=== PATIENT | male | born 1965 | race Caucasian/White ===

== ENCOUNTER 2018-12-21 11:09 | Emergency (ER) | payer MEDICARE, OTHER ==
[~2018-12-21] VITALS: Ht 167.6 cm; Wt 68.0 kg
[~2018-12-21 11:09] MED LIST: AMITRIPTYLINE H50 MG PO; GABAPENTIN300 MG PO; RISPERDAL4 MG PO; ZANAFLEX4 MG PO; ZOLOFT100 MG PO
--- OUTSIDE RECORDS SUMMARY | 2018-12-21 11:12 | XMS ---
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 Care History Substance Use/Overdose 06/28/2016 [facility] THIS PATIENT IS BEING TREATED FOR CHRONIC PAIN BY DR CHAO OF [facility] IN [facility]. HE SEES DR CHAO AT THE [facility] OFFICE. PLEASE AVOID NARCOTIC TREATMENT WITHOUT SPEAKING WITH DR CHAO. CONTACT INFO IS PHONE [phone] AND FAX [phone]. Dav[facility] VISIT COUNT (12 MO.) 1 [facility] TOTAL 1 NOTE: Visits indicate total known visits. ED/UCC VISIT TRACKING (12 MO.) 12/21/2018 11:09 [facility] [place] TYPE: Emergency COMPLAINT: - ANKLE INJ, SWELLING INPATIENT VISIT TRACKING (12 MO.) No inpatient visits to display in this time frame [email or web address]
== END 2018-12-21 11:23 | disposition home or self-care (01) ==
LOC: ED 11:09
DX: S99.912A Unspecified injury of left ankle, initial encounter (principal); X50.9XXA Other and unspecified overexertion or strenuous movements or postures, initial encounter

== ENCOUNTER 2019-11-25 11:57 | Emergency (ER) | payer MEDICARE, OTHER ==
[~2019-11-25] VITALS: Ht 167.6 cm; Wt 61.2 kg
--- OUTSIDE RECORDS SUMMARY | 2019-11-25 12:00 | XMS ---
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 Huan has no Care Guidelines for this patient. Care History Substance Use/Overdose 06/28/2016 [facility] THIS PATIENT IS BEING TREATED FOR CHRONIC PAIN BY DR CHAO OF [facility] IN [facility]. HE SEES DR CHAO AT THE [facility]. PLEASE AVOID NARCOTIC TREATMENT WITHOUT SPEAKING WITH DR CHAO. CONTACT INFO IS PHONE [phone] AND FAX [phone]. E.D. VISIT COUNT (12 MO.) 2 [facility]. TOTAL 2 NOTE: Visits indicate total known visits. ED/UCC VISIT TRACKING (12 MO.) 11/25/2019 11:58 [facility] TYPE: Emergency COMPLAINT: - WEAKNESS 12/21/2018 11:09 [facility] TYPE: Emergency COMPLAINT: - ANKLE INJ, SWELLING DIAGNOSES: - Other and unspecified overexertion or strenuous movements or - Unspecified injury of left ankle, initial encounter INPATIENT VISIT TRACKING (12 MO.) No inpatient visits to display in this time frame [email or web address]
[2019-11-25] MEDS ORDERED: ONDANSETRON ODT8 MG PO (14:16)
== END 2019-11-25 14:28 | disposition home or self-care (01) ==
LOC: ED 11:57
DX: F10.239 Alcohol dependence with withdrawal, unspecified (principal); F17.200 Nicotine dependence, unspecified, uncomplicated; Z79.899 Other long term (current) drug therapy
CPT/HCPCS: 36415; 80053; 85025; 96361; 96374; 99285-25; J2405; J7030